=== PATIENT | female | born 1990 | race American Indian/Alaskan Native ===

== ENCOUNTER 2017-11-01 11:03 | Emergency (ER) | payer MEDICAID, OTHER ==
[~2017-11-01] VITALS: Ht 165.1 cm; Wt 82.0 kg
[2017-11-01 11:14] VITALS: BP 140/89
== END 2017-11-01 12:09 | disposition home or self-care (01) ==
LOC: ER 11:03
DX: H60.93 Unspecified otitis externa, bilateral (principal); J45.909 Unspecified asthma, uncomplicated; R59.0 Localized enlarged lymph nodes; Z88.0 Allergy status to penicillin
CPT/HCPCS: 99283

== ENCOUNTER 2019-09-12 18:55 | Observation (INO) | payer MEDICAID, OTHER ==
[~2019-09-12] VITALS: Ht 165.1 cm; Wt 86.2 kg
[2019-09-12] MEDS ORDERED: PNV1TABL76 PO (19:28)
[2019-09-12 20:33] LABS: CLARITY URINE CLEAR (CLEAR); COLOR URINE YELLOW (YELLOW); KETONES URINE NEGATIVE (NEGATIVE); LEUKOCYTE ESTERASE URINE NEGATIVE (NEGATIVE); NITRITE URINE NEGATIVE (NEGATIVE); OCCULT BLOOD URINE NEGATIVE (NEGATIVE); PROTEIN URINE NEGATIVE (NEGATIVE); SPECIFIC GRAVITY URINE 1.007 (1.005-1.030); UROBILINOGEN URINE 0.2 E.U./dL (0.2-1.0)
== END 2019-09-12 21:15 | disposition home or self-care (01) ==
LOC: 8 EST LDRP 18:55
PROVIDERS: ADMIT Specialist; ATTEND Specialist
DX: O46.93 Antepartum hemorrhage, unspecified, third trimester (principal); Z3A.31 31 weeks gestation of pregnancy
CPT/HCPCS: 76815; 81003; 99281; G0378